=== PATIENT | female | born 1960 ===

== ENCOUNTER → 2022-07-19 09:43 | Outpatient (CLI) | payer BC, SELFPAY ==
--- NOTE | ~2022-07-19 | MR_ITS ---
MRI of the right knee Clinical history: Pain Technique: Coronal proton density and proton density-weighted images, sagittal proton-density and T2 fat-sat images, and axial proton-density fat-saturated images were acquired. Findings: Anterior and posterior cruciate ligaments are intact. Medial collateral ligament and the la teral collateral ligament complex are intact. Popliteus tendon is intact. Medial and lateral menisci are intact, without evidence of tear. There is mild chondromalacia patella. There is mild chondral thinning in the medial compartment. Bone marrow signals are unremarkable. Extensor mechanism is intact. Large joint effusion is present. No Concepcion's cyst. Impression: Large knee joint effusion, of uncertain etiology. Correlate clinically. Consider aspiration as indica eloisa. No ligamentous injury or meniscal tear. Mild chondromalacia in the knee, as detailed above. Reviewed, dictated and finalized at [facility]. Impression: Large knee joint effusion, of uncertain etiology. Correlate clinically. Conside r aspiration as indicated. No ligamentous injury or meniscal tear. Mild chondromalacia in the knee, as detailed above.
== END ==
PROVIDERS: PCP Nurse Practitioner; Visit Provider Nurse Practitioner
DX: M25.461 Effusion, right knee (principal)
CPT/HCPCS: 73721